=== PATIENT | male | born 1955 | race Caucasian/White ===

== ENCOUNTER 2024-01-12 16:08 | Inpatient (IN) | payer MEDICARE, MEDICAID, SELFPAY ==
[2024-01-12] VITALS (11 sets, daily range): BP systolic 100–134; BP diastolic 79–96; PULSE 55–114; RESP 18–23; TEMP 36.6–37; O2SAT 88–97; BMI 20.5
--- NOTE | 2024-01-12 16:23 | EKG12_ITS ---
Test Reason : SOB Blood Pressure : / mmHG Vent. Rate : 115 BPM Atrial Rate : 115 BPM P-R Int : 134 ms QRS Dur : 080 ms QT Int : 340 ms P-R-T Axes : 052 045 -09 degrees QTc Int : 470 ms Sinus tachycardia with Premature atrial complexes with Aberrant conduction Nonspecific ST and T wave abnormality Abnormal ECG Confirmed by Jayson Short ([id number]), editor continuity and script CHARISSE CAMACHO ([id number]) on 01/13/2024 11:16:35 AM Referred By: TORI Confirmed By:Jayson Short
--- NOTE | 2024-01-12 16:24 | ED.VIS.DYS ---
HPI History of Present Illness Chief Complaint: Shortness of Breath Detail of Chief Complaint: Shortness of breath Informant: patient Narrative Narrative: Patient presents to the emergency department complaint of shortness of breath that started 2 or 3 days ago. He is brought in by his daughter who states that he recently moved in with her. Patient does have history of COPD. He continues to smoke. Does not wear oxygen. He does not see a primary care physician. He does not know if he has any other medical problems. Patient denies fever or chills or sweats. He does describe some chest tightness. He denies recent travel or surgery otherwise. No history of PE or DVT. PFSH PFSH Allergy/AdvReac Type Severity Reaction Status Date / Time morphine Allergy Mild Swelling Verified 01/12/24 16:15 Social History Smoking Status: Current every day smoker tobacco type: cigarettes ROS ROS ED Review of Systems ROS Unobtainable: other Constitutional Constitutional ED: Reports lethargy; Denies chills, fever(s), sweats or weight loss Eyes Eyes: Denies blurry vision, change in vision or diplopia ENT ENT ED: Denies rhinorrhea or sore throat Cardiovascular Cardiovascular: Reports chest pain; Denies orthopnea or racing heartbeat Respiratory/Chest Respiratory/Chest: Reports cough, dyspnea and dyspnea on exertion; Denies orthopnea or sputum Gastrointestinal Gastrointestinal: Denies abdominal pain, diarrhea, nausea or vomiting Genitourinary Genitourinary ED: Denies dysuria, hematuria or urinary frequency Musculoskeletal Musculoskeletal: Denies arthralgias, back pain, myalgias or neck pain Integumentary Denies abscess, Abrasions or rash Neurologic Neurologic: Denies headache(s) or weakness Psychiatric Psychiatric: Denies anxiety, depression or suicidal thoughts Endocrine Endocrinology: Denies polydipsia, polyphagia or polyuria Hematologic/Lymphatic Hematologic/Lymphatic: Denies easy bleeding, easy bruising or lymphadenopathy Allergic/Immunologic Allergic/Immunologic ED: Denies mouth swelling, tongue swelling or urticaria EXAM Physical Exam Const Vital Signs: 01/12/24 16:09 01/12/24 16:30 01/12/24 16:30 Temperature 97.8 F Temperature Source Temporal Pulse Rate 55 L 114 H Respiratory Rate 20 H 23 H Respiratory Effort Respiratory Pattern Blood Pressure 103/79 113/84 H Blood Pressure Mean 87 93 Pulse Ox 94 97 97 Oxygen Delivery Method Room Air Room Air Room Air Oxygen Flow Rate (L/min) 01/12/24 16:20 01/12/24 16:10 01/12/24 16:36 Temperature 97.8 F Temperature Source Temporal Pulse Rate 107 H 109 H Respiratory Rate 23 H 20 H Respiratory Effort Short of Breath Respiratory Pattern Tachypnea Blood Pressure 113/84 H Blood Pressure Mean 93 Pulse Ox 97 Oxygen Delivery Method Room Air Room Air Oxygen Flow Rate (L/min) 01/12/24 17:17 01/12/24 17:35 Temperature Temperature Source Pulse Rate 101 H Respiratory Rate 20 H Respiratory Effort Respiratory Pattern Blood Pressure 103/80 Blood Pressure Mean 87 Pulse Ox 88 91 Oxygen Delivery Method Room Air Nasal Cannula Oxygen Flow Rate (L/min) 2 Positive well nourished and well developed General Appearance ED: well developed and NAD HEENT Reports TM's clear and moist mucous membranes normocephalic and atraumatic; Negative for trauma or tenderness Tympanic Membrane ED: Yes TM's clear Eyes PERRL and EOMs intact bilaterally General Eye ED: Negative for pale conjunctiva or scleral icterus Neck no lymphadenopathy, supple and no JVD General: Negative for tenderness Chest Wall inspection of chest normal and palpation of chest normal Chest: Negative for tenderness Resp normal respiratory effort and No clear to auscultation bilaterally Resp Narrative: Somewhat decreased breath sounds bilaterally. He has expiratory wheezes bilaterally with some mild tachypnea. No accessory muscle use or retractions. Effort and Inspection: Negative for respiratory distress or pain with movement Auscultation: wheezes; Negative for rhonchi or diminished lung sounds Cardio regular rate, regular rhythm, S1 normal heart sound, S2 normal heart sound and no murmurs Peripheral Pulses: pulses 2+ throughout GI normal to inspection, nondistended, normoactive bowel sounds, soft to palpation, non-tender, non-distended and no masses Back/Spine no CVA tenderness and no thoracic nor lumbar tenderness Extremity normal to inspection General Extremety ED: Negative for edema General Extremity: Negative for edema Neuro oriented x3, CN's II-XII intact bilaterally, no sensory deficits noted and gait normal Sensorium / Orientation: awake, alert, oriented to person, oriented to place and oriented to time Motor Exam: strength 5/5 throughout and strength abnormal Psych mental status grossly normal Skin no rashes or lesions noted and no wounds MDM MDM MDM Narrative Medical decision making narrative: Patient with wheezing and tachycardia. He has tachypnea. History of COPD. IV line established. Patient placed on ekg monitor tech. EKG obtained showed sinus tachycardia with rate of 115 bpm. Patient had some nonspecific ST changes. CBC with differential obtained showed a white count 9.8 with hemoglobin 15.6 and platelet counts of 194. Chemistries unremarkable. Troponin normal at 15. 1 view chest x-ray my interpretation or appreciate any obvious infiltrates. Patient with was tested for COVID and flu and RSV and was positive for RSV. Patient did receive DuoNeb aerosol and albuterol as well as Solu-Medrol 125 mg IV. Patient's O2 saturation on room air dropped to 87% on room air. Patient was placed on 2 L nasal cannula O2. Case will be discussed with hospitalist to evaluate patient for admission. Lab Data Attestation: I reviewed the patient's lab results. Labs: Laboratory Results - last 24 hr 01/12/24 16:25 WBC 9.8 RBC 4.93 Hgb 15.6 Hct 46.0 MCV 93.3 MCH 31.6 MCHC 33.9 RDW Std Deviation 45.5 H RDW Coeff of John 13.3 Plt Count 194 MPV 9.4 Immature Gran % (Auto) 0.200 Neut % (Auto) 68.3 Lymph % (Auto) 20.6 Stanley % (Auto) 9.5 Eos % (Auto) 0.8 Baso % (Auto) 0.6 Absolute Neuts (auto) 6.7 Absolute Lymphs (auto) 2.01 Nucleated RBC % 0 Sodium 132 L Potassium 3.8 Chloride 96 L Carbon Dioxide 31.0 Anion Gap 5 BUN 9 Creatinine 1.00 Est GFR (MDRD) Af Amer 96 Est GFR (MDRD) Non-Af 79 BUN/Creatinine Ratio 9.0 L Glucose 141 H Calcium 9.1 Troponin I High Sens 15 Radiography Diagnostic Testin view chest x-ray obtained interpreted by myself as no evidence of infiltrate or acute disease process. EKG Initial EKG: Attestation: I personally reviewed and interpreted this EKG as follows: Comments: Sinus rhythm with rate [address] changes Discharge Plan Triage Chief Complaint: Shortness of Breath ED Provider: Anjelica Olivares Dx/Rx/DC Orders Clinical Impression: Hypoxemia, RSV infection, COPD exacerbation Primary Care Provider: Care Physician,No Primary Referrals: Care Physician,No Primary [Primary Care Provider] - Disposition Disposition: Acute Care Hospital [facility]
[2024-01-12] MEDS: Ipratropium/Albuterol Sulfate 3 ML AMPUL.NEB INHALATION (16:26)
[2024-01-12] MEDS: Albuterol 2.5 MG/3 ML VIAL.NEB. INHALATION (16:27)
[2024-01-12] MEDS: 0.9% Normal Saline (1000mL) 1,000 ML 150 ML IV (16:34)
[2024-01-12] MEDS: MethylPREDNISolone 125 MG/2 ML Vial IV (16:34)
--- NOTE | 2024-01-12 16:34 | ED.RN ---
NO OLD EKG
[2024-01-12 16:40] LABS: Absolute Lymphocyte Count 2.01 X10^3/uL (0.83-4.51); Absolute Neutrophil Count 6.7 X10^3/uL (2.0-7.7); Basophil# 0.06 X10^3/uL; Basophil% 0.6 % (0-1); Eosinophil# 0.08 X10^3/uL; Eosinophils% 0.8 % (0-5); Hemoglobin 15.6 g/dL (13.0-16.5); Lymphocyte # 2.01 X10^3/ul (0.83-4.51); Lymphocyte % 20.6 % (19-41); Mean Corp Hgb Conc 33.9 g/dL (32-36); Mean Corpuscular Hgb 31.6 pg (27.0-32.0); Mean Corpuscular Volume 93.3 fL (80-94); Mean Platelet Vol. 9.4 fl (6.2-12.0); Monocyte# 0.93 X10^3/uL; Monocyte% 9.5 % (0-10); NRBC Flagged by Analyzer 0 % (0-5); Neutrophil # 6.68 X10^3/uL (2.7-7.7); Neutrophil % 68.3 % (47-70); Platelet Count 194 K/mm3 (150-450); RBC Distribution Width CV 13.3 % (11.6-14.6); RBC Distribution Width SD 45.5 fl (35.1-43.9); Red Blood Count 4.93 M/mm3 (4.6-6.2); White Blood Count 9.8 K/mm3 (4.4-11.0)
--- NOTE | 2024-01-12 16:55 | RAD_ITS ---
INDICATION: dyspnea EXAMINATION/TECHNIQUE: X-RAY - XR Chest 1 View COMPARISON: No previous relevant examinations available for comparison.. FINDINGS: LIFE-SUPPORT AND LINES: 1. None HEART AND VESSELS: The cardiac silhouette, pulmonary vasculature have normal appearance. No evidence of congestive failure. LUNGS AND PLEURAL SPACES: Lungs are clear. No focal infiltrate, consolidation or effusions. No evidence of pneumothorax. Upper lung zones are moderately hyperexpanded. MEDIASTINUM AND HILAR REGIONS: No masses adenopathy noted. No areas of calcification. Visualized upper airway is normal in position. BONY ELEMENTS: No acute bony changes noted. RAD/Chest 1 View (Portable) IMPRESSION: 1. No evidence of acute cardiopulmonary process. Moderate hyperexpansion of the upper lung zones bilaterally. 2. No congestive failure, consolidation or effusion. Electronically Signed: Julian Mercado MD at 17:43 EDT ,
[2024-01-12 17:01] LABS: Anion Gap 5 (5-15); BUN 9 mg/dL (7-18); Calcium,Total 9.1 mg/dL (8.5-10.1); Chloride 96 mmol/L (98-107); EST Glomerular Filtration Rate 79 mL/min (>60); Est Glom Filt Rate - Afr Amer 96 mL/min (>60); Glucose 141 mg/dL (74-106); Potassium 3.8 mmol/L (3.5-5.1); Sodium Level 132 mmol/L (136-145); Troponin-I HS 15 pg/mL (3.0-78.0)
--- NOTE | 2024-01-12 18:17 | HP.PCM.HOS_ITS ---
HPI - General HPI Narrative LAURITA FOSTER, is a 68 M who presents to the hospital with increased weakness and shortness of breath. Shortness of breath started over the last couple days and he has a known history of COPD. Reports he does not see any physicians and it does not appear so far that he is on any medications at home. He is willing to see a machining department supervisor if they are nearby in [place]. Family is also present and states that he is a bit of a heavy drinker where he will drink anywhere between 8-12 16 ounce beers, his last drink was yesterday but he does not want to quit, he has gone through withdrawal before but that does not appear that he is ever gone through seizures. In the ER had a chest x-ray which demonstrated emphysema and he was requiring 2 L nasal cannula at rest for hypoxia as he was down to about 87% on room air. He was tested for COVID and flu and RSV and was positive for RSV and his daughter, who he lives with, states that her roommates child and her own son have both been sick recently. [facility] Home Medications NK 01/12/24 [History Last Taken Unknown] Allergy/AdvReac Type Severity Reaction Status Date / Time morphine Allergy Mild Swelling Verified 01/12/24 16:15 Family History (Updated 01/12/24 @ 18:[address] Freedom Rodriguez MD) Other Cancer Diabetes Surgical History (Updated 01/12/24 @ 18:[address] Freedom Rodriguez MD) History of hernia repair Social History Smoking Status: Current every day smoker tobacco type: cigarettes ROS Constitutional Constitutional: Reports fatigue; Denies chills, fever(s) or malaise Eyes Eyes: Denies blurry vision ENT HEENT: Denies headache(s) or nasal discharge Cardiovascular Cardiovascular: Denies chest pain, dyspnea on exertion or syncope Respiratory/Chest Respiratory/Chest: Reports cough, shortness of breath at rest and shortness of breath with exertion Gastrointestinal Gastrointestinal: Denies constipation, diarrhea, nausea or vomiting Genitourinary Genitourinary: Denies dysuria Neurologic Neurologic: Denies focal weakness, numbness or tremor(s) Psychiatric Psychiatric: Denies anxiety or depression Vital Signs Vital Signs Vital Signs: 01/12/24 16:09 01/12/24 16:30 01/12/24 16:30 Temperature 97.8 F Temperature Source Temporal Pulse Rate 55 L 114 H Respiratory Rate 20 H 23 H Respiratory Effort Respiratory Pattern Blood Pressure 103/79 113/84 H Blood Pressure Mean 87 93 Pulse Ox 94 97 97 Oxygen Delivery Method Room Air Room Air Room Air Oxygen Flow Rate (L/min) 01/12/24 16:20 01/12/24 16:10 01/12/24 16:36 Temperature 97.8 F Temperature Source Temporal Pulse Rate 107 H 109 H Respiratory Rate 23 H 20 H Respiratory Effort Short of Breath Respiratory Pattern Tachypnea Blood Pressure 113/84 H Blood Pressure Mean 93 Pulse Ox 97 Oxygen Delivery Method Room Air Room Air Oxygen Flow Rate (L/min) 01/12/24 17:17 01/12/24 17:35 Temperature Temperature Source Pulse Rate 101 H Respiratory Rate 20 H Respiratory Effort Respiratory Pattern Blood Pressure 103/80 Blood Pressure Mean 87 Pulse Ox 88 91 Oxygen Delivery Method Room Air Nasal Cannula Oxygen Flow Rate (L/min) 2 Physical Exam Narrative General: Alert, Oriented x3, Cooperative, No apparent distress HEENT: Atraumatic, PERRLA, EOMI, Normocephalic, pulmonary cachexia, poor dentition Oral: Moist Mucosa Neck: Supple, No JVD Lungs: Diminished, Normal air movement, No rhonchi, wheeze, No rales Cardiovascular: Regular rate, Regular Rhythm, Normal S1, Normal S2, No murmurs Abdomen: Soft, Non Tender, Non-Distended, No Hepato-splenomegaly Extremities: No edema, Capillary Refill Less than 3 Seconds Skin: No rashes, No breakdown Musculoskeletal: No Tenderness to Palpation of Joints or Extremities Neurological: No focal neurological deficits, Motor Exam 5/5 strength throughout, Sensory exam intact to light touch and pain Psych/Mental Status: Normal Affect, Appropriate Results Lab / Micro Data 01/12/24 16:25 01/12/24 16:25 Labs: Laboratory Results - last 24 hr 01/12/24 16:25: WBC 9.8, RBC 4.93, Hgb 15.6, Hct 46.0, MCV 93.3, MCH 31.6, MCHC 33.9, RDW Std Deviation 45.5 H, RDW Coeff of John 13.3, Plt Count 194, MPV 9.4, Immature Gran % (Auto) 0.200, Neut % (Auto) 68.3, Lymph % (Auto) 20.6, Humphreys % (Auto) 9.5, Eos % (Auto) 0.8, Baso % (Auto) 0.6, Absolute Neuts (auto) 6.7, Absolute Lymphs (auto) 2.01, Nucleated RBC % 0, Sodium 132 L, Potassium 3.8, Chloride 96 L, Carbon Dioxide 31.0, Anion Gap 5, BUN 9, Creatinine 1.00, Est GFR (MDRD) Af Amer 96, Est GFR (MDRD) Non-Af 79, BUN/Creatinine Ratio 9.0 L, Glucose 141 H, Calcium 9.1, Troponin I High Sens 15 Micro: Microbiology 01/12/24 16:25 Mucosa - Nose SARS-CoV-2, Influenza & RSV (PCR) - Final RSV Imaging Radiology Impression Chest X-Ray 01/12/24 16:55 IMPRESSION: 1. No evidence of acute cardiopulmonary process. Moderate hyperexpansion of the upper lung zones bilaterally. 2. No congestive failure, consolidation or effusion. Electronically Signed: Julian Mercado MD at 17:43 EDT , Assessment & Plan Assessment/Plan (1) Hypoxemia: (2) RSV infection: (3) COPD exacerbation: PLAN: Plan 1. Acute COPD exacerbation secondary to RSV with hypoxia ? Continue with Solu-Medrol and breathing treatments ? Sputum culture pending ? Would recommend outpatient follow-up with pulmonology ? COVID and flu negative 2. Alcohol use ? He drinks 16 ounce beer approximately 8-12 a day with his last drink yesterday ? Will place him on the CIWA protocol and he is not interested in quitting 3. He does not see a doctor so it is unclear if he has any other medical history. DVT: Lovenox 75 minutes was spent on direct patient care, including documentation as well as chart review and collaboration with colleagues Charges/Coding Visit Charges Inpatient E&M: 30737 Init Hosp L3
[2024-01-12] MEDS: 0.9% Saline Lock 10 ML Syringe IV (21:40)
[2024-01-13] VITALS (7 sets, daily range): BP systolic 116–153; BP diastolic 71–101; PULSE 71–92; RESP 16–18; TEMP 36.7–36.9; O2SAT 92–95
[2024-01-13] MEDS: 0.9% Saline Lock 10 ML Syringe IV ×3 (05:08→20:29)
[2024-01-13 06:38] LABS: Absolute Lymphocyte Count 0.76 X10^3/uL (0.83-4.51); Absolute Neutrophil Count 6.3 X10^3/uL (2.0-7.7); Basophil# 0.01 X10^3/uL; Basophil% 0.1 % (0-1); Hematocrit 46.6 % (40-54); Hemoglobin 15.6 g/dL (13.0-16.5); Lymphocyte # 0.76 X10^3/ul (0.83-4.51); Lymphocyte % 10.5 % (19-41); Mean Corp Hgb Conc 33.5 g/dL (32-36); Mean Corpuscular Hgb 31.8 pg (27.0-32.0); Mean Corpuscular Volume 94.9 fL (80-94); Mean Platelet Vol. 9.6 fl (6.2-12.0); Monocyte# 0.15 X10^3/uL; Monocyte% 2.1 % (0-10); NRBC Flagged by Analyzer 0 % (0-5); Neutrophil % 86.9 % (47-70); Platelet Count 213 K/mm3 (150-450); RBC Distribution Width CV 13.2 % (11.6-14.6); RBC Distribution Width SD 46.7 fl (35.1-43.9); Red Blood Count 4.91 M/mm3 (4.6-6.2); White Blood Count 7.3 K/mm3 (4.4-11.0)
[2024-01-13] MEDS: Ipratropium/Albuterol Sulfate 3 ML AMPUL.NEB INHALATION ×3 (06:54→19:32)
--- NOTE | 2024-01-13 07:18 | PCM.PN.HOSP ---
Reason for Visit Reason for Visit: Diagnoses Other specified viral diseases (01/12/24) Chronic obstructive pulmonary disease with (acute) exacerbation (01/12/24) Hypoxemia (01/12/24) Objective Data Objective Data Vital Signs: Vital Signs Temp Pulse Resp BP Pulse Ox O2 Del Method O2 Flow Rate 98.3 F 82 18 153/101 H 92 Room Air 2 01/13/24 03:59 01/13/24 06:55 01/13/24 06:55 01/13/24 03:59 01/13/24 06:55 01/13/24 06:55 01/12/24 21:15 Oxygen Flow Rate (L/min) 2 Oxygen Delivery Method Room Air Weight: 131 lb 6.328 oz Body Mass Index (BMI) 20.5 Intake & Output: Intake and Output for Last 24 Hours 01/11/24 01/12/24 01/13/24 23:59 23:59 23:59 Intake Total 820 / 820 Balance 820 / 820 Lab / Micro Data 01/13/24 05:25 01/13/24 05:25 Labs: Laboratory Results - last 24 hr 01/12/24 16:25: WBC 9.8, RBC 4.93, Hgb 15.6, Hct 46.0, MCV 93.3, MCH 31.6, MCHC 33.9, RDW Std Deviation 45.5 H, RDW Coeff of John 13.3, Plt Count 194, MPV 9.4, Immature Gran % (Auto) 0.200, Neut % (Auto) 68.3, Lymph % (Auto) 20.6, Meeker % (Auto) 9.5, Eos % (Auto) 0.8, Baso % (Auto) 0.6, Absolute Neuts (auto) 6.7, Absolute Lymphs (auto) 2.01, Nucleated RBC % 0, Sodium 132 L, Potassium 3.8, Chloride 96 L, Carbon Dioxide 31.0, Anion Gap 5, BUN 9, Creatinine 1.00, Est GFR (MDRD) Af Amer 96, Est GFR (MDRD) Non-Af 79, BUN/Creatinine Ratio 9.0 L, Glucose 141 H, Calcium 9.1, Troponin I High Sens 15 01/13/24 05:25: WBC 7.3, RBC 4.91, Hgb 15.6, Hct 46.6, MCV 94.9 H, MCH 31.8, MCHC 33.5, RDW Std Deviation 46.7 H, RDW Coeff of John 13.2, Plt Count 213, MPV 9.6, Immature Gran % (Auto) 0.400, Neut % (Auto) 86.9 H, Lymph % (Auto) 10.5 L, Meeker % (Auto) 2.1, Eos % (Auto) 0.0, Baso % (Auto) 0.1, Absolute Neuts (auto) 6.3, Absolute Lymphs (auto) 0.76 L, Nucleated RBC % 0 Micro: Microbiology 01/12/24 16:25 Mucosa - Nose SARS-CoV-2, Influenza & RSV (PCR) - Final RSV Radiography Diagnostic Testing: Radiology Impression Chest X-Ray 01/12/24 16:55 IMPRESSION: 1. No evidence of acute cardiopulmonary process. Moderate hyperexpansion of the upper lung zones bilaterally. 2. No congestive failure, consolidation or effusion. Electronically Signed: Julian Mercado MD at 17:43 EDT , Physical Exam Narrative Seen and examined. Patient not had fever or chills. Patient has history of chronic smoking about 1 pack/day since early age probably teenager. Also drinks 8-12 bottles of beer every day. Physical exam General: Alert, Oriented x3, Cooperative. BMI 20.6 KG per square meter HEENT: Atraumatic, PERRLA, EOMI, Normocephalic Oral: No Gingival or Mucosal Lesions/ Ulcerations Neck: Supple, No JVD, Negative Carotid Bruits Chest wall/Lungs: Air entry diminished in bilateral lung bases. Bilateral coarse crepitations. Cardiovascular: Regular rate, Regular Rhythm, Normal S1, Normal S2, No M/G/R Abdomen: Bowel Sounds Present, Soft, Non Tender, Non-Distended : No dysuria. No renal angle tenderness. No suprapubic tenderness. Extremities: No edema, Capillary Refill Less than 3 Seconds Skin: No rashes, No breakdown Musculoskeletal: No Tenderness to Palpation of Joints or Extremities. Mild decrease in bulk of muscles of his periphery, intraspinal muscles and chest wall. Loss of subcutaneous fat. Chronic moderate malnutrition. Neurological: Cranial nerves II-XII grossly intact, DTR 2+/4. No acute focal neurological deficit. Psych/Mental Status: Normal Affect, Appropriate. Assessment & Plan Assessment/Plan (1) Hypoxemia: (2) RSV infection: (3) COPD exacerbation: PLAN: Plan 68-year-old gentleman came to ED for shortness of breath for about 3 days. History of COPD, continues to smoke. Does not wear oxygen at home. No fever or chills. Complain of chest tightness 1. Acute COPD exacerbation secondary to RSV with hypoxia: Patient is admitted on MedSurg floor. Patient is being managed on scheduled bronchodilator, IV Solu-Medrol, Mucinex, incentive spirometry and Pep. Sputum culture pending. COVID-19, RSV and flu PCR negative. Outpatient follow-up recommended. 2. Alcohol use ? He drinks 16 ounce beer approximately 8-12 a day with his last drink yesterday ? on the CIWA protocol and he is not interested in quitting 3. He does not see a doctor so it is unclear if he has any other medical history. DVT: Lovenox Charges/Coding Visit Charges Inpatient E&M: 14571 Subs Hosp L2
[2024-01-13 07:39] LABS: Anion Gap 6 (5-15); BUN 7 mg/dL (7-18); BUN/Creat Ratio 9.2 RATIO (10-20); Chloride 101 mmol/L (98-107); Creatinine, Serum 0.76 mg/dL (0.70-1.30); EST Glomerular Filtration Rate 108 mL/min (>60); Est Glom Filt Rate - Afr Amer 131 mL/min (>60); Estimated Creatinine Clearance 76.57 ml/min; Glucose 176 mg/dL (74-106); Sodium Level 136 mmol/L (136-145)
--- NOTE | 2024-01-13 09:45 | CASEMGMT ---
ROSHAN VÁZQUEZ Assessment: Face to Face with pt for initial transition planning/care coordination assessment. ROSHAN VÁZQUEZ introduced self and role at [facility], pt voices understanding and consents to assessment. Pt is A&O x4 and answers all questions appropriately at this time. Pt sitting up in bed sa[place] style with oxygen on in no distress. Hospitalist came iin at end of assessment. Care providers, pharmacy, and demographics verified/updated. Admitting Dx: COPD with hypoxia PCP:No PCP, provided pt with a local healthcare directory list. Specialists:Denies Preferred Pharmacy:[facility] Insurance: [employer] [facility] Prescription Benefit: yes LNOK: Kelly Parmar, dtr Living Arrangements: Pt lives with dtr, son in law and grandson and a friend of his dtrs's in a single story home with a ramp in the front to enter. Pt reports he is I in ADL's and denies concerns at home. Transportation: Pt does not drive. Pt dtr provides transportation. DME:cane- does not use HHC/SNF: Denies hx of Pt states no concerns with going home at time of dc. Discussed local in network oxygen companies should pt need oxygen upon dc. Pt denies preference. Pt states no further concerns/needs. CM to follow. Advised pt to ask CM if any further question/concerns/needs arise, voices understanding. Pt Goal: Home Plan: Home, follow oxygen Anna ISLAS CM
[2024-01-13] MEDS: Enoxaparin 40 MG/0.4 ML Syringe SC (10:40)
--- NOTE | 2024-01-13 15:00 | CASEMGMT ---
Social Work - SDOH assessment Met with patient alone in room, introducing to self and social work role. SDOH assessment completed. Patient reports transportation is the biggest concern, but does have help from patient's daughter. Provided patient with packet of information on local transportation resources, including [facility] Van service and [facility] free transportation service. Explored whether patient has any issues with reading or understanding, and patient denies, so verbally reviewed information and also left packet in patient's admission folder for take home. This law writer had been notified by clinical unit educator that family did come to the nurses station asking to speak to social work, though family had left by perinatal social worker to room. Patient reports daughter wanted to discuss completing power of sales floor associate paperwork. Inquired whether patient wants to complete Advance Directive information. Patient reports to trust daughter and would be okay with daughter being the POAHC. Educated patient to the POAHC, and also broached Living Will, though patient appeared more focused on the POAHC. This law writer called the daughter, Kelly, while still in the room wiht patient. Kelly confirms desire to talk about POAHC. Confirmed Daughters contact information for the forms. Discussed with patient and Kelly whether patient wants to add an alternate POAHC to the form, in case something happens to Kelly. Kelly reports patient's son Chema might be an option and will talk with Chema jessie. Patient reports to want some time to think this over and talk with Kelly, about the alternate. Patient reports uncertainty whether Chema would be a reliable person. This law writer agreed for SW to follow back up with patient after having time to talk with Kelly, and then determine POAHC from there. Kelly also asked about resources for home delivered meals. Kelly reports patient doesn't need food everyday, but maybe a few days a week. Educated to MOWs service, and options for both hot and frozen meals. Daughter reports interest in the frozen meals. Agreed to get MOWs information for patient. Plan: SW to follow up with additional resources - Advance Directive and MOWs. -JAYSON Rivas
[2024-01-13] MEDS: Acetaminophen 325 MG Tablet 650 MG PO (15:51)
[2024-01-14] VITALS (10 sets, daily range): BP systolic 110–159; BP diastolic 64–94; PULSE 68–100; RESP 18; TEMP 36.5–36.6; O2SAT 88–96
[2024-01-14] MEDS: 0.9% Saline Lock 10 ML Syringe IV ×3 (04:07→20:06)
[2024-01-14] MEDS: Acetaminophen 325 MG Tablet 650 MG PO ×2 (04:13→20:06)
[2024-01-14] MEDS: Enoxaparin 40 MG/0.4 ML Syringe SC (08:28)
--- NOTE | 2024-01-14 13:45 | NURSING ---
Pt has not had bowel movement since 01/11/24. This RN offered to ask Dr Dickson about getting a stool softener/laxative, but pt refused.
--- NOTE | 2024-01-14 14:39 | CASEMGMT ---
Social Work SW met with pt and provided written information on home delivered meal options. SW offered to make a referral and pt declined stating his dgt assists with meal prep. SW encouraged pt to share the information with pt's dgt and contact information to start services is on the information. SW spoke with pt regarding completing HCPOA. Pt states he has not spoke with his daughter about this yet and pt does not want to complete until he speaks with her. SW will check back with pt as time allows. DRU Vargas
--- NOTE | 2024-01-14 17:01 | PCM.PN.HOSP ---
Reason for Visit Reason for Visit: Diagnoses Other specified viral diseases (01/12/24) Chronic obstructive pulmonary disease with (acute) exacerbation (01/12/24) Hypoxemia (01/12/24) Objective Data Objective Data Vital Signs: Vital Signs Temp Pulse Resp BP Pulse Ox O2 Del Method O2 Flow Rate 98 F 80 18 159/88 H 94 Nasal Cannula 2 01/14/24 13:20 01/14/24 13:20 01/14/24 13:20 01/14/24 13:20 01/14/24 13:20 01/14/24 13:43 01/14/24 13:43 Oxygen Flow Rate (L/min) 2 Oxygen Delivery Method Nasal Cannula Weight: 131 lb 6.328 oz Body Mass Index (BMI) 20.5 Intake & Output: Intake and Output for Last 24 Hours 01/12/24 01/13/24 01/14/24 23:59 23:59 23:59 Intake Total 820 / 820 Output Total 300 / 300 Balance 820 / 820 -300 / -300 Lab / Micro Data 01/13/24 05:25 01/13/24 05:25 Micro: Microbiology 01/12/24 16:25 Mucosa - Nose SARS-CoV-2, Influenza & RSV (PCR) - Final RSV Physical Exam Narrative Seen and examined. Patient not had fever or chills. Patient has history of chronic smoking about 1 pack/day since early age probably teenager. Also drinks 8-12 bottles of beer every day. Patient is still short of breath and wheezing. Physical exam General: Alert, Oriented x3, Cooperative. BMI 20.6 KG per square meter HEENT: Atraumatic, PERRLA, EOMI, Normocephalic Oral: No Gingival or Mucosal Lesions/ Ulcerations Neck: Supple, No JVD, Negative Carotid Bruits Chest wall/Lungs: Air entry diminished in bilateral lung bases. Bilateral coarse crepitations and wheezing although better than yesterday. Cardiovascular: Regular rate, Regular Rhythm, Normal S1, Normal S2, No M/G/R Abdomen: Bowel Sounds Present, Soft, Non Tender, Non-Distended : No dysuria. No renal angle tenderness. No suprapubic tenderness. Extremities: No edema, Capillary Refill Less than 3 Seconds Skin: No rashes, No breakdown Musculoskeletal: No Tenderness to Palpation of Joints or Extremities. Mild decrease in bulk of muscles of his periphery, intraspinal muscles and chest wall. Loss of subcutaneous fat. Chronic moderate malnutrition. Neurological: Cranial nerves II-XII grossly intact, DTR 2+/4. No acute focal neurological deficit. Psych/Mental Status: Normal Affect, Appropriate. Assessment & Plan Assessment/Plan (1) Hypoxemia: (2) RSV infection: (3) COPD exacerbation: PLAN: Plan 68-year-old gentleman came to ED for shortness of breath for about 3 days. History of COPD, continues to smoke. Does not wear oxygen at home. No fever or chills. Complain of chest tightness 1. Acute COPD exacerbation secondary to RSV with hypoxia: Patient is admitted on [facility] floor. Patient is being managed on scheduled bronchodilator, IV Solu-Medrol, Mucinex, incentive spirometry and Pep. Sputum culture pending. COVID-19, RSV and flu PCR negative. Outpatient follow-up recommended. 01/13: Continue above treatment. Anticipate discharge tomorrow. 2. Alcohol use ? He drinks 16 ounce beer approximately 8-12 a day with his last drink yesterday ? on the CIWA protocol and he is not interested in quitting 01/13: Patient does not seem in alcohol withdrawal. 3. He does not see a doctor so it is unclear if he has any other medical history. 4. Chronic moderate malnutrition: Dietitian consult reviewed DVT: Lovenox Charges/Coding Visit Charges Inpatient E&M: 92782 Subs Hosp L2
[2024-01-15 03:16] VITALS: BP 148/94; PULSE 87; RESP 16; TEMP 36.6; O2SAT 95
[2024-01-15] MEDS: 0.9% Saline Lock 10 ML Syringe IV (04:46)
--- NOTE | 2024-01-15 07:04 | PN.HOSP_ITS ---
Reason for Visit Reason for Visit: Diagnoses Other specified viral diseases (01/12/24) Chronic obstructive pulmonary disease with (acute) exacerbation (01/12/24) Hypoxemia (01/12/24) Subjective Subjective Breathing ok. Objective Data Objective Data Vital Signs: Vital Signs Temp Pulse Resp BP Pulse Ox O2 Del Method O2 Flow Rate 36.6 C 87 16 148/94 H 95 Nasal Cannula 1 01/15/24 03:16 01/15/24 03:16 01/15/24 03:16 01/15/24 03:16 01/15/24 03:16 01/15/24 03:18 01/15/24 03:16 Oxygen Flow Rate (L/min) 1 Oxygen Delivery Method Nasal Cannula Weight: 59.6 kg Body Mass Index (BMI) 20.5 Intake & Output: Intake and Output for Last 24 Hours 01/13/24 01/14/24 01/15/24 23:59 23:59 23:59 Output Total 650 / 650 500 / 500 Balance -650 / -650 -500 / -500 Lab / Micro Data 01/13/24 05:25 01/13/24 05:25 Micro: Microbiology 01/12/24 16:25 Mucosa - Nose SARS-CoV-2, Influenza & RSV (PCR) - Final RSV Physical Exam Const alert and no apparent distress Constitutional Narrative: gaunt. afebrile. no respiratory distress. no conversational dyspnea. HEENT head/scalp atraumatic Resp normal respiratory effort, no retractions, no use of accessory muscles and clear to auscultation bilaterally Cardio regular rate, regular rhythm, S1 normal heart sound and S2 normal heart sound Assessment & Plan Assessment/Plan (1) Hypoxemia: (2) RSV infection: (3) COPD exacerbation: PLAN: Plan Acute COPD exacerbation * secondary to RSV with hypoxia * on BDs and methylpred. start prednisone. * Patient requires 3 L of oxygen with activity. Patient is ambulatory in home and in the community and requires home oxygen with portability. * follow up w pulm as outpt. Chronic moderate malnutrition: * ensure VTE prophylaxis: enoxaparin.
[2024-01-15] MEDS: Ipratropium/Albuterol Sulfate 3 ML AMPUL.NEB INHALATION ×2 (07:27→11:19)
[2024-01-15 07:28] VITALS: PULSE 95; RESP 18; O2SAT 94
[2024-01-15 08:08] VITALS: BP 151/98; PULSE 89; RESP 18; TEMP 36.8; O2SAT 92
[2024-01-15 08:18] VITALS: O2SAT 86; O2SAT 88; O2SAT 89
--- NOTE | 2024-01-15 10:05 | DS.PCM_ITS ---
Providers Date of Admission: 01/12/24 Primary Care Physician: Cherri Primary Care Phys Reason For Visit: COPD WITH HYPOXIA Diagnosis Discharge Diagnosis (1) Hypoxemia: Status: Acute Code(s): R09.02 - Hypoxemia (2) RSV infection: Status: Acute Code(s): B33.8 - Other specified viral diseases (3) COPD exacerbation: Status: Chronic Code(s): J44.1 - Chronic obstructive pulmonary disease with (acute) exacerbation Plan Acute COPD exacerbation * secondary to RSV with hypoxia * on BDs and methylpred. start prednisone. * Patient requires 3 L of oxygen with activity. Patient is ambulatory in home and in the community and requires home oxygen with portability. * follow up w pulm as outpt. Chronic moderate malnutrition: * ensure VTE prophylaxis: enoxaparin. Medications at Discharge Home Medications albuterol sulfate 90 mcg/actuation aerosol inhaler 2 puff inhalation Q6H PRN shortness of breath or wheezing #6.7 grams 01/15/24 food supplemt, lactose-reduced (Ensure Compact oral liquid) 118 ml PO TIDCM #90 mL 01/15/24 prednisone 20 mg tablet 40 mg (2 x 20 mg) PO BREAKFAST #10 tabs 01/15/24 Hospital Course Operations None Procedures None Summary of Care Provided Minutes Spent on Discharge: 32 Hospital Course: Patient presents with what sounds like COPD exacerbation secondary to RSV. Patient's course was uncomplicated and patient was on methylprednisolone and transition to prednisone upon discharge. Weight / BMI Weight Weight: 59.6 kg Body Mass Index (BMI) 20.5 ABG / Lab / Microbiology Data 01/13/24 05:25 01/13/24 05:25 Microbiology: Microbiology 01/12/24 16:25 Mucosa - Nose SARS-CoV-2, Influenza & RSV (PCR) - Final RSV D/C Instructions Discharge Diet: No restrictions Meaningful Use Info Meaningful Use Diagnoses (Choose all that apply): None applicable Discharge Plan Admission Admit Date/Time: 01/12/24 17:59 Primary Reason for Your Visit: COPD exacerbation Attending Provider: Jr Gutiérrez Primary Care Provider: Care Physician,No Primary Consulting Providers: Freedom Rodriguez Prakash Instructions Additional Instructions / Restrictions: You have exacerbation of what looks like chronic struct of pulmonary disease. Will be on prednisone over several days as well as having a bronchodilator, albuterol, to help you with you having breathing difficulties in the future. Do recommend that you do have this formally evaluated with pulmonology. Additionally is recommended that you do follow the primary care physician just for routine monitoring. Discharge Orders/Prescriptions Prescriptions: New prednisone 20 mg Tablet 40 mg PO BREAKFAST Qty: 10 0RF Ensure Compact Liquid 118 ml PO TIDCM Qty: 90 0RF albuterol sulfate 90 mcg/actuation HFA aerosol inhaler 2 puff inhalation Q6H PRN (Reason: shortness of breath or wheezing) Qty: 6.7 0RF Referrals / Follow Up: Care Physician,No Primary [Primary Care Provider] - Within 1 Month [facility] [Provider Group] - Within 3 Months Disposition Disposition (needs filled in before D/C Order can be placed): Home, Self Care Charges/Coding Visit Charges Inpatient E&M: 94132 Disch Hosp >30min
[2024-01-15 11:19] VITALS: PULSE 88; RESP 18; O2SAT 96
--- NOTE | 2024-01-15 12:45 | NURSING ---
Daughter call ed to check on pt, informed her that he would be d/c'd later today. Daughter asked about hospital transportation back to his home. No order to d/c yet, but AJAY/KATHIE aware.
--- NOTE | 2024-01-15 13:06 | CASEMGMT ---
Social Work SW met with pt to assist with completing HCPOA. Pt continues to be uncertain if he wants to list his son on the document. Pt unwilling to complete documents until he talks with his dgt Kelly. SW educated pt that he can notify SW if he decides to complete or he can call for an outpatient appointment. AD rack card provided. DRU Vargas
--- NOTE | 2024-01-15 14:02 | CASEMGMT ---
RN CM into pt room, pt would like to use the hospital van for transportation home. He is aware he qualifies for home oxygen. Reviewed homegoing oxygen instruction with pt. Pt verbalizes understanding. Pt reports he has a pox. Pt is aware of importance of obtaining PCP. Pt denies any homegoing needs otherwise at this time. TC to [facility] Van, pt can be picked up at main entrance at 3:30pm. Updated pt nurse and he is aware to take portable oxygen tank from stock. [place] [facility] [place]
[2024-01-15 15:12] VITALS: BP 117/88; PULSE 69; RESP 18; TEMP 36.9; O2SAT 97
[2024-01-15] MEDS: predniSONE 20 MG Tablet 40 MG PO (15:23)
== END 2024-01-15 15:33 | disposition home or self-care (01) | DRG 191 ==
LOC: ED 17:42 → MS3 19:49
PROVIDERS: Admitting Provider Family Medicine; Emergency Provider Emergency Medicine
DX: J44.1 Chronic obstructive pulmonary disease with (acute) exacerbation (principal); E44.0 Moderate protein-calorie malnutrition; F17.210 Nicotine dependence, cigarettes, uncomplicated; B97.4 Respiratory syncytial virus as the cause of diseases classified elsewhere; Z68.20 Body mass index [BMI] 20.0-20.9, adult; R09.02 Hypoxemia; F10.90 Alcohol use, unspecified, uncomplicated
CPT/HCPCS: 36415; 71045; 80048; 84484; 85025; 87631; 93005; 94640; 94668; 97802; 99284; J7030; A4216